=== PATIENT | male | born 1985 | race Caucasian/White ===

== ENCOUNTER 2017-01-01 07:54 | Emergency (ER) | payer BC ==
[~2017-01-01] VITALS: Ht 182.9 cm; Wt 96.0 kg
[2017-01-01 08:29] LABS: EOSINOPHIL (%) 1.2 % (0-5); EOSINOPHIL COUNT 0.1 K/uL (0-0.3); HEMATOCRIT 43.5 % (38.0-50.0); IMMATURE GRANULOCYTE (%) 0.4 % (0.0-0.7); INSTRUMENT ABS NEUTROPHIL CT 3.5 K/uL; LYMPHOCYTE COUNT 0.9 K/uL (1.0-2.8); MCH 29.2 PG (29.0-34.0); MEAN PLAT.VOLUME 10.3 uM^3 (9.0-12.4); MONOCYTE (%) 8.8 % (3-12); MONOCYTE COUNT 0.4 K/uL (0-0.8); NEUTROPHIL (%) 71.4 % (45-76); NEUTROPHIL COUNT 3.5 K/uL (1.8-6.4); PLATELET COUNT 168 K/uL (156-360); RBC DIS.WIDTH-CV 12.7 % (11.8-14.6); RBC DIS.WIDTH-SD 39.8 % (39-53); RED BLOOD COUNT 5.06 M/uL (4.00-5.50); WHITE BLOOD COUNT 4.9 K/uL (4.1-10.2)
[2017-01-01 08:37] LABS: CHLORIDE 103 mEq/L (99-109); POTASSIUM 3.6 mEq/L (3.7-5.4); SODIUM 137 mEq/L (136-147)
[2017-01-01 08:39] LABS: GLUCOSE 157 mg/dL (70-99)
[2017-01-01 08:40] LABS: ANION GAP 12 MEQ/L (2-14)
[2017-01-01 08:42] LABS: GFR ESTIMATE (CALCULATED) > 59 mL/min/
[2017-01-01 08:43] LABS: UREA NITROGEN (BUN) 11 mg/dL (9-23)
[2017-01-01 08:44] LABS: INFLUENZA A VIRAL ANTIGEN NEGATIVE; INFLUENZA B VIRAL ANTIGEN NEGATIVE
[2017-01-01 08:53] LABS: MONOSPOT (MONONUCLEOSIS SEROL) NEGATIVE
[2017-01-01 08:54] LABS: INTERNAL CONTROL VALID? YES
[2017-01-01] MEDS ORDERED: VIBRAMYCIN100 MG PO (10:08)
[2017-01-01] MEDS ORDERED: PREDNISONE20 MG PO (10:10)
[2017-01-01 11:48] VITALS: BP 112/68
== END 2017-01-01 11:52 | disposition home or self-care (01) ==
LOC: EME 07:54
PROVIDERS: Nurse Practitioner Family
DX: J18.9 Pneumonia, unspecified organism (principal); F17.200 Nicotine dependence, unspecified, uncomplicated
CPT/HCPCS: 71020; 80048; 83605; 85025; 86308; 87040; 87502; 94640; 99281; 99285; J7030; J7512

== ENCOUNTER 2018-04-22 08:12 | Emergency (ER) | payer BC ==
[~2018-04-22] VITALS: Ht 182.9 cm; Wt 96.3 kg
[~2018-04-22 08:12] MED LIST: PREDNISONE20 MG PO; VIBRAMYCIN100 MG PO
[2018-04-22] MEDS ORDERED: MOTRIN800 MG PO (09:28)
[2018-04-22] MEDS ORDERED: FLEXERIL10 MG PO (09:28)
[2018-04-22 09:30] VITALS: BP 105/61
== END 2018-04-22 10:06 | disposition home or self-care (01) ==
LOC: EME 08:12
DX: M62.838 Other muscle spasm (principal); Z87.898 Personal history of other specified conditions; Z88.1 Allergy status to other antibiotic agents
CPT/HCPCS: 72100; 99281; 99284; J1885